=== PATIENT | male | born 1950 | race Caucasian/White ===

== ENCOUNTER → 2019-09-14 | Outpatient (CLI) | payer MEDICARE | END | disposition home or self-care (01) | LOC: RAD 10:48 | PROVIDERS: ATTEND Physician Assistant | DX: N20.0 Calculus of kidney (principal); N40.0 Benign prostatic hyperplasia without lower urinary tract symptoms; K42.9 Umbilical hernia without obstruction or gangrene; I70.0 Atherosclerosis of aorta; K57.30 Diverticulosis of large intestine without perforation or abscess without bleeding; K80.20 Calculus of gallbladder without cholecystitis without obstruction | CPT/HCPCS: 74176 ==

== ENCOUNTER 2019-11-13 10:15 | Day surgery (SDC) | payer MEDICARE ==
[~2019-11-13] VITALS: Ht 188 cm; Wt 111.4 kg
[2019-11-13] MEDS ORDERED: CHLORHEXIDINE 15 ML UDC MM STA (10:35)
[2019-11-13] MEDS ORDERED: LACTATED RINGERS 1,000 ML IV SCH (10:37)
[2019-11-13] MEDS ORDERED: TAMS-11 PO (10:41)
[2019-11-13] MEDS ORDERED: CIPR500T3 PO (10:41)
[2019-11-13] MEDS ORDERED: ATOR40TA PO (10:41)
[2019-11-13] MEDS ORDERED: ASPI-515 PO (10:41)
[2019-11-13 10:42] VITALS: BP 134/78
[2019-11-13] MEDS ORDERED: PLEASE ENTER HEIGHT AND WEIGHT MC SCH (11:00)
[2019-11-13] MEDS ORDERED: FENTANYL PF 250 MCG/5ML ONE (11:22)
[2019-11-13 11:23] LABS: MICROSCOPIC NOT IND
[2019-11-13 11:29] LABS: ALANINE AMINOTRANSFERASE 35 U/L (12-78); ALBUMIN 3.7 g/dL (3.4-5.0); ANION GAP 6 mmol/L (5-15); CALCIUM 8.7 mg/dL (8.5-10.1); CHLORIDE 114 mmol/L (98-107); CREATININE 1.32 mg/dL (0.7-1.3)
[2019-11-13] MEDS ORDERED: hydrALAzine 20 MG/ML, 1ML IV PRN (11:30)
[2019-11-13] MEDS ORDERED: HALOPERIDOL 5 MG/ML IV PRN (11:30)
[2019-11-13] MEDS ORDERED: OXYcodone 5 MG/5 ML ORAL.SOL UDC PO PRN (11:30)
[2019-11-13] MEDS ORDERED: LABETALOL 5MG/ML, 20ML IV PRN (11:30)
[2019-11-13] MEDS ORDERED: DIPHENHYDRAMINE 50 MG/ML, 1ML IVPush PRN (11:30)
[2019-11-13] MEDS ORDERED: HYDROmorphone 1 MG/ML, 1ML INJ IVPush PRN (11:30)
[2019-11-13] MEDS ORDERED: MEPERIDINE/PF 25MG/0.5ML IVPush PRN (11:30)
[2019-11-13] MEDS ORDERED: PROMETHAZINE 25 MG/ML, 1ML IVPush PRN (11:30)
[2019-11-13 11:57] LABS: BASOPHILS # (AUTO) 0.02 x10^3/uL (0-0.1); BASOPHILS % (AUTO) 1 % (0-1); EOSINOPHILS # (AUTO) 0.08 x10^3/uL (0-0.4); EOSINOPHILS % (AUTO) 2 % (1-7); LYMPHOCYTES # (AUTO) 1.14 x10^3/uL (1-3.4); LYMPHOCYTES % (AUTO) 30 % (22-44); MD NO; MEAN CORPUSCULAR HEMOGLOBIN 33.6 pg (27.5-34.5); MEAN CORPUSCULAR HGB CONC 33.7 g/dL (33.2-36.2); MEAN CORPUSCULAR VOLUME 99.6 fL (81-97); MEAN PLATELET VOLUME 8.6 fL (7.4-10.4); MONOCYTES # (AUTO) 0.38 x10^3/uL (0.2-0.8); MONOCYTES % (AUTO) 10 % (2-9); NEUTROPHILS # (AUTO) 2.24 x10^3/uL (1.8-6.8); NEUTROPHILS % (AUTO) 58 % (42-75); PLATELET COUNT 137 x10^3/uL (130-400); RED BLOOD COUNT 4.07 x10^6/uL (4.38-5.82); RED CELL DISTRIBUTION WIDTH 13.8 % (9.4-14.8)
[2019-11-13] MEDS ORDERED: EPHEDRINE 50 MG/ML, 1ML ONE (12:33)
[2019-11-13 12:42] LABS: ALKALINE PHOSPHATASE 48 U/L (45-117); BILIRUBIN,TOTAL 0.7 mg/dL (0.2-1.0); TOTAL PROTEIN 7.4 g/dL (6.4-8.2)
[2019-11-13] MEDS ORDERED: ONDANSETRON 2MG/ML, 2ML ONE (13:36)
[2019-11-13] MEDS ORDERED: ROCURONIUM 10MG/ML,5ML ONE (13:36)
[2019-11-13] MEDS ORDERED: GLYCOPYRROLATE 0.2MG/1ML, 5ML ONE (13:36)
[2019-11-13] MEDS ORDERED: PROPOFOL 10 MG/ML, 20ML ONE (13:36)
[2019-11-13] MEDS ORDERED: CEFAZOLIN 1,000 MG ONE (13:36)
[2019-11-13] MEDS ORDERED: NEOSTIGMINE 1 MG/ML, 10ML ONE (13:36)
[2019-11-13] MEDS ORDERED: DEXAMETHASONE 4 MG/ML, 1ML ONE (13:36)
[2019-11-13] MEDS ORDERED: SUCCINYLCHOLINE 20 MG/ML, 10ML ONE (13:36)
[2019-11-13] MEDS ORDERED: FENTANYL PF 100 MCG/2ML ONE (14:02)
[2019-11-13] MEDS ORDERED: OXYcodone 5 MG/5 ML ORAL.SOL UDC ONE (14:02)
[2019-11-13] MEDS: FENTANYL PF 100 MCG/2ML IV PRN ×2 (14:07→14:14)
== END 2019-11-13 15:55 | disposition home or self-care (01) ==
LOC: OUT 10:15
PROVIDERS: ATTEND Urology
DX: N20.2 Calculus of kidney with calculus of ureter (principal); Z11.59 Encounter for screening for other viral diseases; N40.0 Benign prostatic hyperplasia without lower urinary tract symptoms; E78.5 Hyperlipidemia, unspecified; Z79.82 Long term (current) use of aspirin; Z79.899 Other long term (current) drug therapy; Z87.442 Personal history of urinary calculi; Z86.010 Personal history of colon polyps; Z98.890 Other specified postprocedural states; Z84.1 Family history of disorders of kidney and ureter; Z82.49 Family history of ischemic heart disease and other diseases of the circulatory system
CPT/HCPCS: 36415; 52356; 74018; 80053; 81003; 85025; 93005; C2617; J0330; J0690; J1100; J2405; J2704; J3010; J7120; U0001; 76000; J2710

== ENCOUNTER → 2020-03-05 | Outpatient (CLI) | payer MEDICARE ==
[~2020-03-05] MED LIST: ASPI-515 PO; ATOR40TA PO; CIPR500T3 PO; TAMS-11 PO
== END | disposition home or self-care (01) ==
LOC: RAD 08:15
PROVIDERS: ATTEND Urology
DX: N20.0 Calculus of kidney (principal); Z87.442 Personal history of urinary calculi
CPT/HCPCS: 74018